=== PATIENT | male | born 1990 | race Caucasian/White ===

== ENCOUNTER 2016-12-03 10:55 | Emergency (ER) | payer OTHER ==
[~2016-12-03] VITALS: Ht 162.6 cm; Wt 58.7 kg
[~2016-12-03 10:55] MED LIST: KEFLEX500 MG PO; NAPROSYN500 MG PO
[2016-12-03] MEDS ORDERED: CEFTIN500 MG PO (11:26)
[2016-12-03] MEDS ORDERED: PREDNISONE10 MG PO (11:27)
[2016-12-03] MEDS ORDERED: MONTELUKAST SOD10 MG PO (11:30)
[2016-12-03] MEDS ORDERED: FLUOXETINE HCL20 M1 PO (11:31)
[2016-12-03] MEDS ORDERED: DULERA 200 MCG/13 GM IH (11:32)
[2016-12-03 12:01] LABS: EOSINOPHIL (%) 0 % (0-5); IMMATURE GRANULOCYTE (%) 0.3 % (0.0-0.7); IMMATURE GRANULOCYTE COUNT 0.2 K/uL; MCH 29.2 PG (29.0-34.0); MCHC 36.7 G/DL (30.0-36.0); MCV 79.5 FL (86-99); MONOCYTE (%) 2.5 % (3-12); MONOCYTE COUNT 0.2 K/uL (0-0.8); NEUTROPHIL (%) 81.4 % (45-76); NEUTROPHIL COUNT 5.3 K/uL (1.8-6.4); PLATELET COUNT 170 K/uL (156-360); RBC DIS.WIDTH-CV 12.5 % (11.8-14.6); RBC DIS.WIDTH-SD 35.2 % (39-53); RED BLOOD COUNT 5.41 M/uL (4.00-5.50); WHITE BLOOD COUNT 6.5 K/uL (4.1-10.2)
[2016-12-03 12:11] LABS: CHLORIDE 106 mEq/L (99-109); POTASSIUM 4.2 mEq/L (3.7-5.4); SODIUM 136 mEq/L (136-147)
[2016-12-03 12:13] LABS: GLUCOSE 106 mg/dL (70-99)
[2016-12-03 12:15] LABS: ANION GAP 10 MEQ/L (2-14)
[2016-12-03 12:17] LABS: GFR ESTIMATE (CALCULATED) > 59 mL/min/
[2016-12-03 12:18] LABS: UREA NITROGEN (BUN) 11 mg/dL (9-23)
[2016-12-03 13:17] LABS: D-DIMER ELISA < 0.15 mg/L FEU (< 0.57)
[2016-12-03] MEDS ORDERED: LEVAQUIN500 MG PO (14:49)
[2016-12-03] MEDS ORDERED: ALBUTEROL2.5 MG/3 M IH (14:49)
[2016-12-03] MEDS ORDERED: TYLENOL WITH C1 EACH PO (14:49)
[2016-12-03 15:40] VITALS: BP 132/84
== END 2016-12-03 15:46 | disposition home or self-care (01) ==
LOC: EME 10:55
PROVIDERS: Emergency Medicine
DX: J40 Bronchitis, not specified as acute or chronic (principal); J45.909 Unspecified asthma, uncomplicated; Z87.01 Personal history of pneumonia (recurrent); Z86.718 Personal history of other venous thrombosis and embolism
CPT/HCPCS: 71020; 80048; 85025; 85379; 93005; 94640; 99281; 99285; J1100

== ENCOUNTER 2016-12-07 22:00 | Emergency (ER) | payer OTHER ==
[~2016-12-07] VITALS: Ht 162.6 cm; Wt 53.2 kg
[~2016-12-07 22:00] MED LIST changes: +ALBUTEROL2.5 MG/3 M IH; +CEFTIN500 MG PO; +DULERA 200 MCG/13 GM IH; +FLUOXETINE HCL20 M1 PO; +LEVAQUIN500 MG PO; +MONTELUKAST SOD10 MG PO; +PREDNISONE10 MG PO; +TYLENOL WITH C1 EACH PO
[2016-12-07 22:51] LABS: HEMATOCRIT 42.6 % (38.0-50.0); MCH 29.4 PG (29.0-34.0); MCHC 35.9 G/DL (30.0-36.0); MCV 81.9 FL (86-99); MEAN PLAT.VOLUME 9.9 uM^3 (9.0-12.4); PLATELET COUNT 161 K/uL (156-360); RBC DIS.WIDTH-CV 12.7 % (11.8-14.6); RBC DIS.WIDTH-SD 37.3 % (39-53); WHITE BLOOD COUNT 6.6 K/uL (4.1-10.2)
[2016-12-07 23:03] LABS: CHLORIDE 108 mEq/L (99-109); POTASSIUM 3.8 mEq/L (3.7-5.4); SODIUM 140 mEq/L (136-147)
[2016-12-07 23:05] LABS: GLUCOSE 108 mg/dL (70-99)
[2016-12-07 23:06] LABS: ANION GAP 12 MEQ/L (2-14)
[2016-12-07 23:09] LABS: GFR ESTIMATE (CALCULATED) > 59 mL/min/
[2016-12-07 23:10] LABS: D-DIMER ELISA < 0.15 mg/L FEU (< 0.57); UREA NITROGEN (BUN) 18 mg/dL (9-23)
[2016-12-07 23:11] LABS: TROP-I INTERPRETATION NEGATIVE; TROPONIN-I < 0.01 ng/mL (0.0-0.30)
[2016-12-07 23:12] LABS: LIPASE 51 U/L (1.0-51.0)
[2016-12-07 23:15] LABS: ALKALINE PHOSPHATASE 62 IU/L (3-129)
[2016-12-07 23:16] LABS: TOTAL BILIRUBIN 0.5 MG/DL (0.0-1.0)
[2016-12-07 23:17] LABS: DIRECT BILIRUBIN 0.2 mg/dL (0.0-0.3)
[2016-12-08 00:28] LABS: TROP-I INTERPRETATION NEGATIVE; TROPONIN-I < 0.01 ng/mL (0.0-0.30)
[2016-12-08 01:47] VITALS: BP 133/85
== END 2016-12-08 01:48 | disposition home or self-care (01) ==
LOC: EME 22:00
PROVIDERS: Emergency Medicine
DX: J20.9 Acute bronchitis, unspecified (principal); R07.9 Chest pain, unspecified; J45.909 Unspecified asthma, uncomplicated; Z79.52 Long term (current) use of systemic steroids; Z86.718 Personal history of other venous thrombosis and embolism
CPT/HCPCS: 71020; 71275; 80048; 80076; 83690; 84484; 85027; 85379; 93005; 99281; 99285; J7030

== ENCOUNTER 2016-12-10 20:19 | Emergency (ER) | payer OTHER ==
[~2016-12-10] VITALS: Ht 162.6 cm; Wt 60.3 kg
[2016-12-10 20:49] VITALS: BP 140/97
== END 2016-12-11 02:56 | disposition left against medical advice (07) ==
LOC: EME 20:19
DX: R07.9 Chest pain, unspecified (principal); Z53.21 Procedure and treatment not carried out due to patient leaving prior to being seen by health care provider